=== PATIENT | female | born 1955 | race Caucasian/White ===

== ENCOUNTER 2020-06-01 11:52 | Day surgery (SDC) | payer MEDICARE, MEDICAID ==
[2020-05-26 14:36] LABS: UA COLLECTION TYPE CLN CATCH MIDSTREAM
[2020-05-26 14:37] LABS: CLARITY,URINE TURBID (Clear); COLOR,URINE YELLOW (Yellow); GLUCOSE, URINE NEGATIVE (Neg); KETONES,URINE TRACE mg/dl (Neg); LEUKOCYTE ESTERASE ,URINE MODERATE (Neg); NITRITES, URINE NEGATIVE (Neg); OCCULT BLOOD,URINE LARGE (Neg); PROTEIN,URINE 100 mg/dl (Neg)
[2020-05-26 14:44] LABS: MUCUS STRANDS MANY /LPF (Neg); SQUAMOUS EPITHELIAL CELL,UR MANY /LPF (FEW)
[2020-05-26 14:47] LABS: BACTERIA,URINE 4+ /HPF (Neg); TRANSITIONAL EPI CELLS,URINE FEW /HPF; WBC,URINE 50-100 /HPF (0-4)
[2020-05-26 14:49] LABS: ALBUMIN 3.8 G/DL (3.4-5.0); ALBUMIN/GLOBULIN RATIO 0.8 (1.1-1.5); ALKALINE PHOSPHATASE 74 IU/L (46-116); BLOOD UREA NITROGEN 8 MG/DL (7-18); BUN/CREATININE RATIO 10.1 (6.6-38.0); CALCIUM 9.4 MG/DL (8.5-10.1); CHLORIDE 104 MMOL/L (99-107); CREATININE 0.79 MG/DL (0.40-0.90); PRE OP ALT 56 U/L (30-65); PRE OP ANION GAP 10 (8-16); PRE OP AST 51 U/L (10-37); PRE OP BILIRUB, TOTAL 0.3 MG/DL (0.0-1.0); PRE OP GLUCOSE 99 MG/DL (70-104); PRE OP INR 1.1 INR; PRE OP POTASSIUM 3.6 MMOL/L (3.4-5.1); PRE OP PROTIME 11.1 SECONDS (9.0-12.0); PRE OP SODIUM 143 MMOL/L (135-145); TOTAL CARBON DIOXIDE 29.1 MMOL/L (24-32); TOTAL PROTEIN 8.3 G/DL (6.4-8.2); eGFR 73 ML/MIN
[2020-05-26 14:49] LABS: RBC,URINE 0-2 /HPF (0-2)
[2020-05-26 14:58] LABS: BASOPHILS # (AUTO) 0.1 X10'3 (0-0.2); BASOPHILS % (AUTO) 2.2 % (0-1); EOSINOPHILS # (AUTO) 0.4 X10'3 (0-0.9); EOSINOPHILS % (AUTO) 5.2 % (0-6); LYMPHOCYTES # (AUTO) 1.5 X10'3 (1.1-4.8); LYMPHOCYTES % (AUTO) 21.9 % (21-51); MEAN CORPUSCULAR HEMOGLOBIN 36.1 PG (27.0-31.0); MEAN CORPUSCULAR HGB CONC 33.7 g/dL (33.0-36.5); MEAN CORPUSCULAR VOLUME 107.1 FL (78-98); MONOCYTES # (AUTO) 0.4 X10'3 (0-0.9); MONOCYTES % (AUTO) 6.2 % (2-12); NEUTROPHILS # (AUTO) 4.3 X10'3 (1.8-7.7); NEUTROPHILS % (AUTO) 64.5 % (42-75); PRE OP HEMATOCRIT 36.9 % (35.0-45.0); PRE OP HEMOGLOBIN 12.4 g/dL (12.0-16.0); PRE OP PLATELET COUNT 287 X10'3 (140-440); RED BLOOD COUNT 3.45 X10'6 (4.20-5.60); RED CELL DISTRIBUTION WIDTH 14.8 % (11.5-14.5)
[2020-05-26 15:28] LABS: PLATELET ESTIMATE NORMAL
[2020-05-26 15:29] LABS: ANISOCYTOSIS 1+
[2020-06-01] VITALS (10 sets, daily range): BP systolic 153–170; BP diastolic 86–101
[~2020-06-01] VITALS: Ht 162.6 cm; Wt 96.5 kg
[~2020-06-01 11:52] MED LIST: ATOR40TA72 PO; CHOL200052 PO; DICY20TA17 PO; ESCI10TA61 PO; LEVO88TA7 PO; LOSA100T57 PO; METF-950 PO; NORT25CA PO; ceFOXitin sod/dextrose 2g/50ml 50 ML IV ONE; famotidine 20mg tablet PO ONE; ringers solution, lacted 1,000 ML IV SCH
[2020-06-01] MEDS ORDERED: ringers solution, lacted 1,000 ML IV SCH (12:55)
[2020-06-01] MEDS ORDERED: proCHLORperazine 10 MG/2 ml inj IV PRN (12:55)
[2020-06-01] MEDS ORDERED: morphine 2 MG/ML inj. syringe IV PRN (12:55)
[2020-06-01] MEDS ORDERED: meperidine/PF 25mg/ml syringe IV PRN ×3 (12:55)
[2020-06-01] MEDS ORDERED: ondansetron/PF 4mg/2ml inj IV PRN (12:55)
[2020-06-01] MEDS ORDERED: morphine 4 MG/ML inj SYRINge IV PRN (12:55)
[2020-06-01] MEDS ORDERED: BUPIVAcaine/PF 2.5 mg/ml (0.25%) 30ml vial ONE (13:20)
[2020-06-01] MEDS ORDERED: sevoflurane 250ml liquid IH ONE (14:11)
[2020-06-01] MEDS ORDERED: fentaNYL/PF 50MCG/1 ML 2ML syringe ONE (14:12)
[2020-06-01] MEDS ORDERED: midazolam 2 mg/2 ml injection ONE (14:12)
--- NOTE | 2020-06-01 14:48 | NUR ---
RECEIVED FROM OR VIA [facility] ACCOMPANIED BY ANESTHESIOLOGIST DR LOPEZ, REPORT GIVEN. PT AWAKE AND ALERT AND DENIES PAIN. 20 GAUGE PIV L HAND PATENT AND RUNNING LR AT 100 ML/HR. PERIPAD DRESSING WITH SCANT SS DRAINAGE, ABD SOFT.PPULSES PRESENT, BRISK CAP REFILL, SKIN PINK AND WARM. STABLE AND RESTING COMFORTABLY.
[2020-06-01] MEDS ORDERED: LIDOcaine 2% (20mg/ml) 5ml vial ONE (15:13)
[2020-06-01] MEDS ORDERED: ondansetron/PF 4mg/2ml inj ONE (15:13)
[2020-06-01] MEDS ORDERED: propofol inj 20 ML IV ONE (15:13)
[2020-06-01] MEDS ORDERED: dexamethasone sod phosphate 4mg/ml inj. ONE (15:13)
--- NOTE | 2020-06-01 16:18 | NUR ---
PT AWAKE AND ALERT AND DENIES PAIN. 20 GAUGE PIV L HAND DCD CATH TIP INTACT. PERIPAD DRESSING WITH SCANT SS DRAINAGE, ABD SOFT.PPULSES PRESENT, BRISK CAP REFILL, SKIN PINK AND WARM. ABLE TO TOLERATE FLUIDS, DRESS SELF, AMBULATE AND VOID WITH NO ASSIST. DISCHARGE INSTRUCTIONS GIVEN AND PT VERBALIZED UNDERSTANDING. TRANSPORTED VIA WHEELCHAIR TO FRIEND IN PERSONAL VEHICLE TO HOME.
== END 2020-06-01 16:18 | disposition home or self-care (01) ==
LOC: PAS 11:52
PROVIDERS: ATTEND Obstetrics & Gynecology
DX: N89.8 Other specified noninflammatory disorders of vagina (principal); N72 Inflammatory disease of cervix uteri; N81.6 Rectocele; F17.210 Nicotine dependence, cigarettes, uncomplicated; I10 Essential (primary) hypertension; E11.9 Type 2 diabetes mellitus without complications; E66.9 Obesity, unspecified; Z68.36 Body mass index [BMI] 36.0-36.9, adult; Z90.49 Acquired absence of other specified parts of digestive tract; Z86.718 Personal history of other venous thrombosis and embolism; Z87.19 Personal history of other diseases of the digestive system; Z79.899 Other long term (current) drug therapy; Z79.84 Long term (current) use of oral hypoglycemic drugs; Z20.828 Contact with and (suspected) exposure to other viral communicable diseases
CPT/HCPCS: 36415; 58558; 80053; 81001; 82948; 85025; 85610; 85730; 86885; 86900; 86901; 87635; 93005; J0694; J1100; J2001; J2250; J2405; J2704; J3010; J3490; J7030; 85008; 88305; A4355; A4618; A6258; J7120

== ENCOUNTER 2023-10-10 12:19 | Emergency (ER) | payer OTHER ==
[~2023-10-10] VITALS: Ht 172.7 cm; Wt 136.4 kg
[~2023-10-10 12:19] MED LIST changes: +ESCI-8 PO; -ESCI10TA61 PO; -LOSA100T57 PO; +LOSA100T58 PO; +METF-1203 PO; -METF-950 PO; -ceFOXitin sod/dextrose 2g/50ml 50 ML IV ONE; -famotidine 20mg tablet PO ONE; -ringers solution, lacted 1,000 ML IV SCH
[2023-10-10 17:34] LABS: BASOPHILS # (AUTO) 0.1 X10'3 (0-0.2); BASOPHILS % (AUTO) 0.9 % (0-1); EOSINOPHILS # (AUTO) 0.2 X10'3 (0-0.9); EOSINOPHILS % (AUTO) 2.4 % (0-6); HEMATOCRIT 40.1 % (35.0-45.0); HEMOGLOBIN 12.9 g/dl (12.0-16.0); LYMPHOCYTES # (AUTO) 0.8 X10'3 (1.1-4.8); LYMPHOCYTES % (AUTO) 11.7 % (21-51); MEAN CORPUSCULAR HEMOGLOBIN 29.7 PG (27.0-31.0); MEAN CORPUSCULAR HGB CONC 32.1 g/dL (33.0-36.5); MEAN CORPUSCULAR VOLUME 92.6 FL (78-98); MONOCYTES # (AUTO) 0.3 X10'3 (0-0.9); MONOCYTES % (AUTO) 4.5 % (2-12); NEUTROPHILS # (AUTO) 5.7 X10'3 (1.8-7.7); NEUTROPHILS % (AUTO) 80.5 % (42-75); PLATELET COUNT 224 X10'3 (140-440); RED BLOOD COUNT 4.33 X10'6 (4.20-5.60); RED CELL DISTRIBUTION WIDTH 17.4 % (11.5-14.5); WHITE BLOOD COUNT 7.1 X10'3 (4.5-11.0)
[2023-10-10 17:47] LABS: ALBUMIN 2.9 G/DL (3.4-5.0); ANION GAP 2 (8-16); BLOOD UREA NITROGEN 11 MG/DL (7-18); BUN/CREATININE RATIO 15.7 (10.0-20.0); CALCIUM 8.9 MG/DL (8.5-10.1); CHLORIDE 103 MMOL/L (99-107); GLUCOSE 87 MG/DL (70-104); POTASSIUM 3.8 MMOL/L (3.5-5.1); SODIUM 142 MMOL/L (135-145); TOTAL CARBON DIOXIDE 36.8 MMOL/L (24-32); eCRCL 77 ML/MIN; eGFR 83 ML/MIN
[2023-10-10] MEDS ORDERED: iohexol 350MG/ML 100ml bottle IV ONE (17:51)
[2023-10-10] MEDS ORDERED: APIX5TAB3 PO (18:55)
[2023-10-10] MEDS: apixaban 5mg tablet PO ONE (19:32)
[2023-10-10 19:47] VITALS: BP 162/81; PULSE 73; RESP 18; TEMP 98.7; O2SAT 90
== END 2023-10-10 19:54 | disposition home or self-care (01) ==
LOC: ER 12:20
DX: I82.402 Acute embolism and thrombosis of unspecified deep veins of left lower extremity (principal); Z79.899 Other long term (current) drug therapy; Z79.2 Long term (current) use of antibiotics
CPT/HCPCS: 36415; 71275; 80048; 85025; 93971; 99285; J3490; Q9967

== ENCOUNTER 2024-01-30 21:29 | Emergency (ER) | payer OTHER ==
[~2024-01-30] VITALS: Ht 162.6 cm; Wt 90.9 kg
[~2024-01-30 21:29] MED LIST changes: +APIX5TAB3 PO
[2024-01-30 22:04] LABS: BASOPHILS # (AUTO) 0.1 X10'3 (0-0.2); BASOPHILS % (AUTO) 1.5 % (0-1); EOSINOPHILS # (AUTO) 0.2 X10'3 (0-0.9); EOSINOPHILS % (AUTO) 2.2 % (0-6); HEMATOCRIT 35.2 % (35.0-45.0); HEMOGLOBIN 11.5 g/dl (12.0-16.0); LYMPHOCYTES # (AUTO) 1.2 X10'3 (1.1-4.8); LYMPHOCYTES % (AUTO) 16.2 % (21-51); MEAN CORPUSCULAR HEMOGLOBIN 29.4 PG (27.0-31.0); MEAN CORPUSCULAR HGB CONC 32.6 g/dL (33.0-36.5); MEAN CORPUSCULAR VOLUME 90.3 FL (78-98); MEAN PLATELET VOLUME 7.3 FL (7.4-10.4); MONOCYTES # (AUTO) 0.3 X10'3 (0-0.9); MONOCYTES % (AUTO) 4.5 % (2-12); NEUTROPHILS # (AUTO) 5.5 X10'3 (1.8-7.7); NEUTROPHILS % (AUTO) 75.6 % (42-75); PLATELET COUNT 231 X10'3 (140-440); RED BLOOD COUNT 3.89 X10'6 (4.20-5.60); RED CELL DISTRIBUTION WIDTH 18.5 % (11.5-14.5); WHITE BLOOD COUNT 7.3 X10'3 (4.5-11.0)
[2024-01-30 22:16] LABS: ALANINE AMINOTRANSFERASE 35 U/L (12-78); ALBUMIN/GLOBULIN RATIO 0.8 (1.1-1.5); ALKALINE PHOSPHATASE 72 IU/L (46-116); ANION GAP 8 (8-16); ASPARTATE AMINO TRANSFERASE 13 U/L (10-37); BILIRUBIN,TOTAL 0.6 MG/DL (0.1-1.0); BLOOD UREA NITROGEN 21 MG/DL (7-18); BUN/CREATININE RATIO 22.6 (10.0-20.0); CALCIUM 9.5 MG/DL (8.5-10.1); CHLORIDE 102 MMOL/L (99-107); CREATININE 0.93 MG/DL (0.40-0.90); GLUCOSE 256 MG/DL (70-104); LIPASE 43 U/L (16-77); POTASSIUM 3.8 MMOL/L (3.5-5.1); SODIUM 139 MMOL/L (135-145); TOTAL CARBON DIOXIDE 29.3 MMOL/L (24-32); TOTAL PROTEIN 6.8 G/DL (6.4-8.2); eCRCL 49 ML/MIN; eGFR 60 ML/MIN
[2024-01-30] MEDS: ondansetron/PF 4mg/2ml inj IV ONE (22:25)
[2024-01-30] MEDS: morphine 4 MG/ML inj SYRINge IV ONE (22:26)
[2024-01-30] MEDS ORDERED: iohexol 300mg/ml 100ml inj. ONE (23:41)
[2024-01-31 02:20] LABS: BILIRUBIN,URINE NEGATIVE (Neg); CLARITY,URINE CLEAR (Clear); COLOR,URINE YELLOW (Yellow); GLUCOSE, URINE NEGATIVE (Neg); KETONES,URINE NEGATIVE (Neg); LEUKOCYTE ESTERASE ,URINE NEGATIVE (Neg); NITRITES, URINE NEGATIVE (Neg); OCCULT BLOOD,URINE NEGATIVE (Neg); PROTEIN,URINE NEGATIVE (Neg); UROBILINOGEN,URINE 0.2 E.U/dL (0.2-1.0)
[2024-01-31 02:25] LABS: UA COLLECTION TYPE CLN CATCH MIDSTREAM
[2024-01-31] MEDS ORDERED: ONDA-243 PO (03:23)
[2024-01-31 09:13] VITALS: PULSE 85
[2024-01-31 12:23] VITALS: BP 106/78; RESP 16; TEMP 98.2; O2SAT 98
== END 2024-01-31 12:27 | disposition home or self-care (01) ==
LOC: ER 21:29
DX: R10.31 Right lower quadrant pain (principal); F03.90 Unspecified dementia, unspecified severity, without behavioral disturbance, psychotic disturbance, mood disturbance, and anxiety; Z79.899 Other long term (current) drug therapy; Z79.84 Long term (current) use of oral hypoglycemic drugs
CPT/HCPCS: 36415; 74177; 80053; 81003; 83690; 85025; 96374; 96375; 99285; J2270; J2405; Q9967

== ENCOUNTER 2024-02-02 07:29 | Emergency (ER) | payer OTHER ==
[~2024-02-02] VITALS: Ht 162.6 cm; Wt 111.1 kg
[~2024-02-02 07:29] MED LIST changes: +ONDA-243 PO
[2024-02-02] MEDS: acetaminophen 325mg tablet PO ONE (10:00)
[2024-02-02 10:50] VITALS: BP 153/86; PULSE 73; RESP 20; TEMP 98.1; O2SAT 94
== END 2024-02-02 10:05 | disposition home or self-care (01) ==
LOC: ER 07:29
DX: S09.8XXA Other specified injuries of head, initial encounter (principal); R10.31 Right lower quadrant pain; Z79.899 Other long term (current) drug therapy; Z79.84 Long term (current) use of oral hypoglycemic drugs; W18.39XA Other fall on same level, initial encounter; Y93.89 Activity, other specified; Y92.89 Other specified places as the place of occurrence of the external cause; Y99.8 Other external cause status
CPT/HCPCS: 99284

== ENCOUNTER 2024-09-01 18:37 | Emergency (ER) | payer MEDICARE ==
[~2024-09-01] VITALS: Ht 162.6 cm; Wt 90.9 kg
[~2024-09-01 18:37] MED LIST changes: -APIX5TAB3 PO; -CHOL200052 PO; -DICY20TA17 PO; -ESCI-8 PO; -NORT25CA PO; -ONDA-243 PO
[2024-09-01] MEDS: ketorolac trometh 15mg/ml vial 15 MG/ML ML IM ONE (19:49)
[2024-09-01 19:54] VITALS: BP 113/50; PULSE 74; RESP 16; TEMP 98.6; O2SAT 98
== END 2024-09-01 20:05 | disposition home or self-care (01) ==
LOC: ER 18:37
DX: R51.9 Headache, unspecified (principal); Z79.899 Other long term (current) drug therapy
CPT/HCPCS: 96372; 99283; J1885

== ENCOUNTER 2024-09-14 14:26 | Emergency (ER) | payer MEDICARE, OTHER ==
[~2024-09-14] VITALS: Ht 162.6 cm; Wt 90.9 kg
[2024-09-14 14:32] VITALS: BP 128/62; PULSE 67; RESP 18; TEMP 98.3; O2SAT 97
[2024-09-14] MEDS ORDERED: ESCI20TA36 PO (15:05)
== END 2024-09-14 15:33 | disposition home or self-care (01) ==
LOC: ER 14:27
DX: F41.9 Anxiety disorder, unspecified (principal); F32.A Depression, unspecified; Z20.822 Contact with and (suspected) exposure to COVID-19
CPT/HCPCS: 36415; 87811; 99283

== ENCOUNTER 2024-09-15 11:18 | Emergency (ER) | payer MEDICARE ==
[~2024-09-15] VITALS: Ht 162.6 cm; Wt 96.0 kg
[~2024-09-15 11:18] MED LIST changes: +ESCI20TA36 PO
[2024-09-15 11:34] VITALS: BP 114/53; PULSE 78; RESP 16; O2SAT 96
[2024-09-15 12:47] VITALS: TEMP 97.9
== END 2024-09-15 13:05 | disposition home or self-care (01) ==
LOC: ER 11:18
DX: T30.0 Burn of unspecified body region, unspecified degree (principal); X97.XXXA Assault by smoke, fire and flames, initial encounter; Y93.89 Activity, other specified; Y92.89 Other specified places as the place of occurrence of the external cause; Y99.8 Other external cause status
CPT/HCPCS: 99281